=== PATIENT | female | born 1990 | race Caucasian/White ===

== ENCOUNTER 2017-01-08 15:04 | Outpatient (CLI) | payer MEDICAID ==
[~2017-01-08] VITALS: Ht 165.1 cm; Wt 79.2 kg
[2017-01-08 15:36] VITALS: BP 97/54; PULSE 69; RESP 18; Ht 165.1 cm; Wt 79.2 kg
[2017-01-08] MEDS ORDERED: PRENAT PO (15:38)
--- NOTE | 2017-01-08 16:47 | RADRPT ---
PROCEDURE: Obstetrical ultrasound CLINICAL INDICATION: Pre-term labor. TECHNIQUE: [place]ridge-scale sonographic images of the uterus and cervix. Transabdominal and transvaginal scanning was performed. COMPARISON: None. FINDINGS: Presentation: Breech heart rate is 130 beats per minute. Deepest fluid pocket 6.6 cm Partially visualized placenta: Posterior No evidence of placenta previa or abruption is seen. The cervix is closed with a length of 3.0 cm. IMPRESSION: The cervix is closed with a length of 3.0 cm as visualized transvaginally. Breech presentation. RPTAT: AADD .Leonardo Bearden MD, MD Date Time Electronically viewed and signed by .Leonardo Bearden MD, on 01/08/2017 16:47 .B/
[2017-01-08 17:08] LABS: ADD UMIC YES; URINE BILIRUBIN (Dip) NEGATIVE (NEGATIVE); URINE BLOOD (Dip) NEGATIVE (NEGATIVE); URINE COLOR LT. YELLOW (YELLOW); URINE GLUCOSE (Dip) NEGATIVE (NEGATIVE); URINE KETONES (Dip) NEGATIVE (NEGATIVE); URINE LEUKOCYTE ESTERASE (Dip) TRACE (NEGATIVE); URINE NITRITE (Dip) NEGATIVE (NEGATIVE); URINE TOTAL PROTEIN (Dip) NEGATIVE (NEGATIVE); URINE UROBILINOGEN (Dip) 0.2 E.U./dL (0.1-1.0)
[2017-01-08 17:15] LABS: BACTERIA,URINE OCCASIONAL
--- NOTE | 2017-01-08 17:35 | PN ---
Triage Information Date/Time Weeks of Gestation 20 : 1 Para: 0 Diabetes: none Additional information CXL 3 cm Objective Vital Signs Date Time Temp Pulse Resp B/P Pulse Ox O2 Delivery O2 Flow Rate FiO2 01/08/17 15:36 98.0 69 18 97/54 Room Air Results/Medications Results 24 hrs Laboratory Tests Test 01/08/17 15:30 Urine Color LT. YELLOW Urine Clarity CLEAR Urine pH 7.0 Urine Specific [place] <=1.005 L Urine Ketones NEGATIVE Urine Nitrite NEGATIVE Urine Bilirubin NEGATIVE Urine Urobilinogen 0.2 E.U./dL Urine Leukocyte Esterase TRACE H Urine Microscopic RBC 2-5 Urine Microscopic WBC 2-5 Urine Epithelial Cells FEW Urine Bacteria OCCASIONAL Urine Hemoglobin NEGATIVE Urine Glucose NEGATIVE Urine Total Protein NEGATIVE Assessment/Plan PO Hydration Ultrasound results discussed with patient Patient is sent to ER to ass the underarm rash precautions discussed with patient LILLIAN ESCALANTE M.D. Jan 08, 2017 17:35
--- NOTE | 2017-01-08 17:58 | TRIAGE ---
OB Triage Datetime Report Generated by CPN: 01/08/2017 17:58 Datetime: 01/08/2017 15:41 Assessment Type: Admission Assessment EGA: 20.2 Maternal Assessment Level of Consciousness: Fully Conscious DTR's/Clonus: DTRs 2+; No Clonus Headache: Denies Blurred Vision: No Respiratory Effort: Unlabored; Regular Rhythm; Equal Expansion Breath Sounds, Left: Clear and Equal Breath Sounds, Right: Clear and Equal Nausea/Vomiting: Denies RUQ Epigastric Pain: Denies Lower Extremities Edema: None Degree: None Upper Extremities Edema: None Degree: None Facial Edema: None Fall Risk Assessment History of Falling: (0) No Secondary Diagnosis: (0) No Ambulatory Aid: (0) Bedrest/Nurse Assist IV Therapy: (0) No Gait: (0) Normal/Bedrest/Immobile Mental Status: (0) Oriented to Own Ability Fall Score: 0 Fall Risk Score Definition: No Risk: No action required Datetime: 01/08/2017 15:40 Time of Arrival: 01/08/2017 14:56 Arrived By: Ambulatory Arrived From: Home Chief Complaint: LOWER ABDOMENAL PAIN Movement: Present Contractions: Denies/Absent Rupture of Membranes: Denies Vaginal Bleeding: None Vaginal Discharge: Denies Recent Sexual Intercouse: Denies Abdominal Trauma: Not Applicable Patient Complaints: Other Time Provider Notified: 01/08/2017 15:50 Provider Notified: DR ESCALANTE Initial Plan: NST, UA, TESSIE AND CERVICAL LENGHT (Annotations: Data stored by CPN on behalf of user) Labor Evaluation Frequency: 0 Pattern: Normal: <= 5 Contractions in 10 Minutes Resting Tone Onyx: Relaxed Heart Rate FHR Baseline Rate: 140 Monitor Mode: Doppler Accelerations: 10X10 Decelerations: None
== END 2017-01-08 17:43 | disposition home or self-care (01) ==
LOC: OBT 15:04 → L-D 15:07 → OBT 17:43
PROVIDERS: ATTEND Obstetrics & Gynecology
DX: O26.892 Other specified pregnancy related conditions, second trimester (principal); Z3A.20 20 weeks gestation of pregnancy
CPT/HCPCS: 76815; 76817; 81001; Z7500; G0463